=== PATIENT | male | born 1970 | race Caucasian/White ===

== ENCOUNTER 2019-10-10 11:42 | Emergency (ER) | payer SELFPAY ==
[~2019-10-10] VITALS: Ht 170.2 cm; Wt 75.0 kg
[2019-10-10] MEDS ORDERED: IBUPROFEN 800MG TABLET PO ONE (15:30)
[2019-10-10] MEDS ORDERED: ACETAMINOPHEN 500MG TABLET PO ONE (15:30)
[2019-10-10 16:15] VITALS: BP 111/75
== END 2019-10-10 17:23 | disposition home or self-care (01) ==
LOC: ER 11:42
DX: S92.001A Unspecified fracture of right calcaneus, initial encounter for closed fracture (principal); S53.401A Unspecified sprain of right elbow, initial encounter; W18.30XA Fall on same level, unspecified, initial encounter; X58.XXXA Exposure to other specified factors, initial encounter; Y93.89 Activity, other specified; Y92.89 Other specified places as the place of occurrence of the external cause; Y99.8 Other external cause status
CPT/HCPCS: 73080; 73610; 73630; 99284